=== PATIENT | male | born 1985 | race African-American/Black ===

== ENCOUNTER 2017-07-10 17:05 | Emergency (ER) | payer BC, OTHER ==
[2017-07-10 17:08] VITALS: BP 130/84; PULSE 98; TEMP 98; BMI 25.8
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
== END 2017-07-10 18:16 | disposition home or self-care (01) ==
LOC: JERFT 17:05
DX: S52.92XD Unspecified fracture of left forearm, subsequent encounter for closed fracture with routine healing (principal); V29.9XXD Motorcycle rider (driver) (passenger) injured in unspecified traffic accident, subsequent encounter
CPT/HCPCS: 99281-25

== ENCOUNTER 2019-06-22 20:35 | Emergency (ER) | payer SELFPAY, BC | END 2019-06-22 22:05 | disposition home or self-care (01) | LOC: JERFT 20:35 ==